=== PATIENT | male | born 1940 | race Caucasian/White ===

== ENCOUNTER 2018-06-12 13:03 | Outpatient (CLI) | payer MEDICARE ==
[2018-06-12 14:51] LABS: Hemoglobin 15.2 g/dL (14.0-18.0); Mean Corpuscular HGB CONC 33.9 g/dL (32.0-36.0); Mean Platelet Volume 7.2 fL (7.4-10.4); Platelet Count 214 thou/uL (130-400); RBC Distribution Width 11.9 % (11.5-14.5); Red Blood Cell (RBC) Count 4.21 mill/uL (4.70-6.10); White Blood Cell (WBC) Count 5.3 thou/uL (4.8-10.8)
[2018-06-12 15:08] LABS: Anion Gap 9 mmol/L (10-20); BUN (Urea Nitrogen) 21 mg/dL (8.4-25.7); Calc. Creatinine Clearance 0 mL/min (70-130); Calcium 8.7 mg/dL (7.8-10.44); Carbon Dioxide 32 mmol/L (23-31); Chloride 102 mmol/L (98-107); Estimated GFR-MDRD 84; Glucose 94 mg/dL (83-110); Sodium 139 mmol/L (136-145)
--- NOTE | 2018-06-12 15:32 | EKG ---
Test Reason : Blood Pressure : / mmHG Vent. Rate : 064 BPM Atrial Rate : 064 BPM P-R Int : 170 ms QRS Dur : 076 ms QT Int : 424 ms P-R-T Axes : 066 026 029 degrees QTc Int : 437 ms Normal sinus rhythm Normal ECG No previous ECGs available Confirmed by MARITO CHEN, DR. Rodríguez ([id number]) on 06/12/2018 3:32:29 PM Referred By: ROCIO Confirmed By:DR. Anne DEVI MD
== END 2018-06-12 13:04 | disposition home or self-care (01) ==
LOC: LABBT 13:03
PROVIDERS: ATTEND Thoracic Surgery (Cardiothoracic Vascular Surgery)
DX: Z01.818 Encounter for other preprocedural examination (principal); I65.23 Occlusion and stenosis of bilateral carotid arteries
CPT/HCPCS: 80048; 85027; 93005; 93010

== ENCOUNTER 2018-06-13 09:08 | Inpatient (IN) | payer MEDICARE ==
[2018-06-13] MEDS ORDERED: Heparin 5,000 UNITS/ML VIAL ONE (10:09)
[2018-06-13] MEDS ORDERED: Protamine Sulfate 50 MG/5 ML VIAL ONE (10:09)
[2018-06-13] MEDS ORDERED: Bupivacaine HCl 0.5%/Epinephrine 1:200,000/PF 30 ml Vial ONE (10:09)
[2018-06-13] MEDS ORDERED: CEFAZOLIN/Water 2 GM/20 ML SYRINGE ONE (10:17)
[2018-06-13] MEDS ORDERED: Remifentanil HCl 2 MG in Sodium Chloride 0.9% 100 ML IV SCH (10:45)
[2018-06-13] MEDS ORDERED: Fentanyl 100 MCG/2 ML VIAL ONE ×3 (11:23→14:13)
[2018-06-13] MEDS ORDERED: PROPOFOL 20 ML ONE ×2 (12:37)
--- NOTE | 2018-06-13 13:38 | OP ---
DATE OF PROCEDURE: 06/13/2018 PREOPERATIVE DIAGNOSIS: Asymptomatic right carotid stenosis. POSTOPERATIVE DIAGNOSIS: Asymptomatic right carotid stenosis. PROCEDURE: Right carotid endarterectomy with patch angioplasty. SURGEON: Dr. Chi Chu ANESTHESIA: General endotracheal. ESTIMATED BLOOD LOSS: Less than 100. PROCEDURE IN DETAIL: After consent was obtained, the patient was brought to operating room and place d in the supine position on the operating room table. Appropriate anesthetic monitor was placed and general endotracheal anesthesia induced. Head was rotated to the left and right neck prepped and jennifer ped in usual sterile fashion. Joints were appropriately supported. Skin incision was made along the anterior border of sternocleidomastoid. Sternocleidomastoid was mobilized. Facial vein was divided between clips and ties. ____ was divided between clips. The carotid sheath was entered. Common in ternal and external carotid arteries were carefully exposed. The patient was systemically heparinize d. After 3 minutes, internal common, and external carotid arteries were serially clamped. Incision was made on the common carotid artery extended through the bulb past the plaque and 10-[place] shunt placed. Antegrade flow was reestablished. Endarterectomy was performed. There was good hemos tasis. An eversion endarterectomy of the external carotid artery was performed. Medial fibers were debrided. Artery was flushed with heparinized saline. Bovine pericardial patch was sewn in place wi th running 6-0 Prolene suture. Prior to completion of the patch, the shunt was clamped and removed. Arteries were backbled and flushed with heparinized saline. Patch suture line was completed and tie d. Antegrade flow was reestablished up the external carotid artery for 10 seconds followed by the in ternal carotid artery. The patient was then given protamine. Hemostasis was ensured. Wound was copying machine repairer iously irrigated, closed in layers and Dermabond applied to the skin. The patient was awakened and n eurologically intact at completion. The patient tolerated the procedure well, and was transferred to the recovery room in stable condition.
[2018-06-13] MEDS ORDERED: hydrALAZINE 20 MG/ML VIAL ONE (13:39)
[2018-06-13] MEDS ORDERED: Ondansetron HCl/PF 4 MG/2 ML Vial IVP PRN (15:53)
[2018-06-13] MEDS ORDERED: Fentanyl 100 MCG/2 ML VIAL SLOW IVP PRN (15:53)
[2018-06-13] MEDS ORDERED: hydrALAZINE 20 MG/ML VIAL SLOW IVP PRN (15:53)
[2018-06-13] MEDS ORDERED: HYDROcodone/Acetaminophen 5/325 mg Tablet PO PRN ×2 (15:53)
[2018-06-13] MEDS ORDERED: Promethazine HCl 25 MG/ML VIAL IM PRN (15:53)
[2018-06-13] MEDS ORDERED: Phenylephrine 10 MG/NS 250 ML 250 ML IVPB PRN (15:53)
[2018-06-13] MEDS ORDERED: Acetaminophen 325 MG TAB PO PRN (15:53)
[2018-06-13] MEDS ORDERED: PROPOFOL 200 MG/20 ML VIAL ONE (15:57)
[2018-06-13] MEDS ORDERED: Lidocaine 1% PF 5 ML VIAL ONE (15:57)
[2018-06-13] MEDS ORDERED: Glycopyrrolate 0.2 MG/ML 5 ML SYRINGE ONE (15:57)
[2018-06-13] MEDS ORDERED: Vecuronium 10 MG VIAL ONE (15:57)
[2018-06-13] MEDS ORDERED: Heparin 10,000 UNITS/ 10 ML VIAL ONE (15:57)
[2018-06-13] MEDS ORDERED: PHENYLEPHRINE-NS 100 MCG/ML 10 ML SYRINGE ONE (15:57)
[2018-06-13] MEDS ORDERED: Ondansetron HCl/PF 4 MG/2 ML Vial ONE (17:34)
[2018-06-13] MEDS ORDERED: HYDROcodone/Acetaminophen 5/325 mg Tablet ONE (18:14)
[2018-06-13] MEDS: Sodium Chloride 0.9% 1,000 ML IV SCH (19:50)
[2018-06-13] MEDS ORDERED: Clopidogrel Bisulfate 75 MG TAB PO SCH (21:00)
[2018-06-13] MEDS ORDERED: Simvastatin 20 MG TAB PO SCH (21:00)
[2018-06-13] MEDS: CEFAZOLIN/Water 2 GM/20 ML SYRINGE SLOW IVP SCH (21:20)
[2018-06-13] MEDS: Brimonidine Tartrate 0.2% Ophth Soln 5 ml Bottle EA EYE SCH (21:20)
[2018-06-13] MEDS: Latanoprost 0.005% Ophth Soln 2.5 ml Bottle EA EYE SCH (21:21)
[2018-06-13] MEDS: Timolol 0.5% Ophth Soln 5 ml Bottle EA EYE SCH (21:21)
[2018-06-13 21:53] VITALS: BMI 22.1
--- NOTE | 2018-06-14 01:53 | DIS ---
DATE OF ADMISSION: 06/13/2018 DATE OF DISCHARGE: 06/14/2018 DIAGNOSIS: Asymptomatic right carotid stenosis. PROCEDURE: Right carotid endarterectomy with patch angioplasty. DISCHARGE MEDICATIONS: Unchanged. FOLLOWUP: Followup is with me in two weeks. DESCRIPTION OF HOSPITAL STAY: Mr. Charles was admitted for elective carotid endarterectomy. He has do ne well and is being discharged to home to follow up with me in 2 weeks.
[2018-06-14] MEDS: CEFAZOLIN/Water 2 GM/20 ML SYRINGE SLOW IVP SCH (02:28)
[2018-06-14] MEDS: Sodium Chloride 0.9% 1,000 ML IV SCH (05:32)
[2018-06-14] MEDS: traMADol HCl 50 MG TAB PO PRN ×2 (05:56→11:46)
[2018-06-14] MEDS ORDERED: Clopidogrel Bisulfate 75 MG TAB PO SCH (09:00)
[2018-06-14] MEDS ORDERED: Aspirin 81 mg Enteric Coated Tablet PO SCH (09:00)
[2018-06-14] MEDS ORDERED: TESTOSTERONE TD SCH (09:00)
[2018-06-14] MEDS: Brimonidine Tartrate 0.2% Ophth Soln 5 ml Bottle EA EYE SCH (09:02)
[2018-06-14] MEDS: Latanoprost 0.005% Ophth Soln 2.5 ml Bottle EA EYE SCH (09:02)
[2018-06-14] MEDS: Timolol 0.5% Ophth Soln 5 ml Bottle EA EYE SCH (09:02)
[2018-06-14 12:29] VITALS: TEMP 98.3
--- NOTE | 2018-06-14 13:41 | DIS ---
DATE OF ADMISSION: 06/13/2018 DATE OF DISCHARGE: 06/14/2018 PRINCIPAL DIAGNOSIS: Bilateral carotid stenosis. PROCEDURE PERFORMED: Right carotid endarterectomy. HISTORY OF PRESENT ILLNESS AND HOSPITAL COURSE: The patient is an 78-year-old man with asymptomatic carotid stenoses suggested by ultrasonography and corroborated by angiography. He was brought into [facility] on 06/13/2018 and underwent the first of a planned staged bilateral carotid endarterectom y procedure. He had an uneventful postop recovery in the Intensive Care Unit. Today, on postoperati ve day 1, he is doing well. His blood pressure is under good control. He is breathing and swallowin g without any difficulty. The wound is clean and dry with no significant swelling. His tongue is mi dline. His voice is normal. He is able to move all extremities normally. He is now being discharge d home to resume his home medications, which include aspirin and Plavix.
== END 2018-06-14 14:20 | disposition home or self-care (01) | DRG 39 ==
LOC: SURG A 09:41 → CCU 15:07
PROVIDERS: ADMIT Thoracic Surgery (Cardiothoracic Vascular Surgery); ATTEND Thoracic Surgery (Cardiothoracic Vascular Surgery)
PROC: 03CH0ZZ Extirpation of Matter from Right Common Carotid Artery, Open Approach (ICD-10-PCS; principal; 2018-06-13)
PROC: 03UH0JZ Supplement Right Common Carotid Artery with Synthetic Substitute, Open Approach (ICD-10-PCS; 2018-06-13)
DX: I65.21 Occlusion and stenosis of right carotid artery (principal); I10 Essential (primary) hypertension; E78.5 Hyperlipidemia, unspecified; Z87.891 Personal history of nicotine dependence
CPT/HCPCS: 80048; 85027; 93005; 93010; J0360; J0670; J0690; J1642; J1644; J2001; J2405; J2704; J2720; J3010; J3490; J7050

== ENCOUNTER 2018-07-08 11:09 | Outpatient (CLI) | payer MEDICARE ==
[2018-07-08 12:09] LABS: Hemoglobin 14.5 g/dL (14.0-18.0); Mean Corpuscular HGB CONC 33.6 g/dL (32.0-36.0); Mean Corpuscular Hemoglobin 35.2 pg (27.0-31.0); Mean Platelet Volume 7.3 fL (7.4-10.4); Platelet Count 227 thou/uL (130-400); RBC Distribution Width 12.2 % (11.5-14.5); Red Blood Cell (RBC) Count 4.11 mill/uL (4.70-6.10); White Blood Cell (WBC) Count 4.8 thou/uL (4.8-10.8)
[2018-07-08 12:32] LABS: Anion Gap 8 mmol/L (10-20); BUN (Urea Nitrogen) 18 mg/dL (8.4-25.7); Calc. Creatinine Clearance 0 mL/min (70-130); Calcium 8.3 mg/dL (7.8-10.44); Carbon Dioxide 29 mmol/L (23-31); Chloride 106 mmol/L (98-107); Estimated GFR-MDRD Greater than 90; Glucose 95 mg/dL (83-110); Sodium 139 mmol/L (136-145)
== END 2018-07-08 11:10 | disposition home or self-care (01) ==
LOC: LABBT 11:09
PROVIDERS: ATTEND Thoracic Surgery (Cardiothoracic Vascular Surgery)
DX: Z01.812 Encounter for preprocedural laboratory examination (principal); I65.22 Occlusion and stenosis of left carotid artery
CPT/HCPCS: 80048; 85027

== ENCOUNTER 2018-07-09 08:55 | Inpatient (IN) | payer MEDICARE ==
[2018-07-08 11:32] VITALS: BMI 21.2
[2018-07-09] MEDS ORDERED: Famotidine/PF 20 mg/2ml Vial ONE (10:25)
[2018-07-09] MEDS ORDERED: Labetalol HCl 100 MG/20 ML VIAL ONE (10:28)
[2018-07-09] MEDS ORDERED: Ondansetron PF 4 MG/2 ML Vial ONE ×2 (10:28→15:21)
[2018-07-09] MEDS ORDERED: CEFAZOLIN/Water 2 GM/20 ML SYRINGE ONE (10:37)
[2018-07-09] MEDS ORDERED: Bupivacaine HCl 0.5%/Epinephrine 1:200,000/PF 30 ml Vial ONE (11:14)
[2018-07-09] MEDS ORDERED: Protamine Sulfate 50 MG/5 ML VIAL ONE (11:14)
[2018-07-09] MEDS ORDERED: Remifentanil HCl 2 MG in Sodium Chloride 0.9% 100 ML IV SCH (11:15)
[2018-07-09] MEDS ORDERED: Heparin 5,000 UNITS/ML VIAL ONE (11:31)
[2018-07-09] MEDS ORDERED: Fentanyl 100 MCG/2 ML VIAL ONE ×2 (11:31→13:30)
[2018-07-09] MEDS ORDERED: SUGAMMADEX SODIUM 200 MG/2 ML VIAL ONE (11:32)
[2018-07-09] MEDS ORDERED: Promethazine HCl 25 MG/ML VIAL SLOW IVP PRN (13:15)
[2018-07-09] MEDS ORDERED: Ondansetron HCl/PF 4 MG/2 ML Vial IVP PRN (13:15)
[2018-07-09] MEDS ORDERED: Promethazine HCl 25 MG/ML VIAL IM PRN (13:15)
[2018-07-09] MEDS ORDERED: hydrALAZINE 20 MG/ML VIAL ONE (13:33)
[2018-07-09] MEDS ORDERED: Prevnar 13-Val Conj/PF 0.5 ML SYRINGE IM ONE (14:45)
[2018-07-09] MEDS ORDERED: hydrALAZINE 20 MG/ML VIAL SLOW IVP PRN (15:07)
[2018-07-09] MEDS ORDERED: Acetaminophen 325 MG TAB PO PRN (15:07)
[2018-07-09] MEDS ORDERED: Fentanyl 100 MCG/2 ML VIAL SLOW IVP PRN (15:07)
[2018-07-09] MEDS ORDERED: CEFAZOLIN/Water 2 GM/20 ML SYRINGE SLOW IVP SCH (15:07)
[2018-07-09] MEDS ORDERED: Dexamethasone 20 MG/5 ML VIAL ONE (15:21)
[2018-07-09] MEDS ORDERED: Esmolol 100 MG/10 ML VIAL ONE (15:21)
[2018-07-09] MEDS ORDERED: Heparin 10,000 UNITS/ 10 ML VIAL ONE (15:21)
[2018-07-09] MEDS ORDERED: Lidocaine 1% PF 5 ML VIAL ONE (15:21)
[2018-07-09] MEDS ORDERED: PROPOFOL 200 MG/20 ML VIAL ONE (15:21)
[2018-07-09] MEDS ORDERED: PHENYLEPHRINE-NS 100 MCG/ML 10 ML SYRINGE ONE (15:21)
[2018-07-09] MEDS: Sodium Chloride 0.9% 1,000 ML IV SCH (15:38)
[2018-07-09] MEDS: traMADol HCl 50 MG TAB PO PRN (20:00)
[2018-07-09] MEDS ORDERED: CEFAZOLIN 1 GM VIAL ONE (20:02)
[2018-07-09] MEDS: Ondansetron PF 4 MG/2 ML Vial IVP PRN (20:03)
[2018-07-09] MEDS: CEFAZOLIN 1 GM in Sodium Chloride 0.9% 100 ML IVPB SCH (20:03)
[2018-07-09] MEDS: Timolol 0.5% Ophth Soln 5 ml Bottle L EYE SCH (20:06)
[2018-07-09] MEDS: Brimonidine Tartrate 0.2% Ophth Soln 5 ml Bottle L EYE SCH (20:07)
[2018-07-09] MEDS ORDERED: Atorvastatin Calcium 10 MG TAB PO SCH (21:00)
[2018-07-09] MEDS ORDERED: Latanoprost 0.005% Ophth Soln 2.5 ml Bottle L EYE SCH (21:00)
[2018-07-09] MEDS ORDERED: Clopidogrel Bisulfate 75 MG TAB PO SCH (21:00)
[2018-07-10] MEDS: traMADol HCl 50 MG TAB PO PRN (01:23)
[2018-07-10] MEDS: Sodium Chloride 0.9% 1,000 ML IV SCH ×2 (01:24→11:35)
[2018-07-10] MEDS: Ondansetron PF 4 MG/2 ML Vial IVP PRN ×3 (03:10→15:19)
[2018-07-10] MEDS: CEFAZOLIN 1 GM in Sodium Chloride 0.9% 100 ML IVPB SCH ×2 (03:11→11:05)
--- NOTE | 2018-07-10 06:11 | DIS ---
DATE OF ADMISSION: 07/09/2018 DATE OF DISCHARGE: 07/10/2018 DIAGNOSIS: Asymptomatic left carotid stenosis. PROCEDURE: Left carotid endarterectomy with patch angioplasty. DISCHARGE MEDICATIONS: Unchanged from his admission medication list. DESCRIPTION OF HOSPITAL STAY: Mr. Charles was admitted for an elective left carotid endarterectomy. H e has done well and being discharged to home in good condition, neurologically intact.
[2018-07-10] MEDS: Brimonidine Tartrate 0.2% Ophth Soln 5 ml Bottle L EYE SCH (08:59)
[2018-07-10] MEDS: Timolol 0.5% Ophth Soln 5 ml Bottle L EYE SCH (08:59)
[2018-07-10] MEDS ORDERED: TESTOSTERONE TOP SCH (09:00)
[2018-07-10] MEDS ORDERED: Aspirin 81 mg Enteric Coated Tablet PO SCH (09:00)
[2018-07-10] MEDS ORDERED: Metoclopramide HCl 10 MG/2 ML VIAL IVP SCH (12:30)
[2018-07-10 15:54] VITALS: BP 138/62; TEMP 98.4
--- NOTE | 2018-07-14 09:07 | OP ---
PREOPERATIVE DIAGNOSIS: Asymptomatic left carotid stenosis. POSTOPERATIVE DIAGNOSIS: Asymptomatic left carotid stenosis. PROCEDURE: Left carotid endarterectomy with patch angioplasty. SURGEON: Chi Chu M.D. ANESTHESIA: General endotracheal. ESTIMATED BLOOD LOSS: Less than 100. PROCEDURE IN DETAIL: After consent was obtained, the patient was brought to operating room and place d in supine position on the operating room table. Appropriate anesthetic monitor was placed and gene ral endotracheal anesthesia induced. Head was rotated to the right. Left neck was prepped and drape d in usual sterile fashion. Skin incision was made along the anterior port of sternocleidomastoid. Platysma was incised with electrocautery. Left sternocleidomastoid muscle was mobilized. The caroti d sheath was entered. Facial vein branch was divided between ties and clips. Common internal and ex ternal carotid arteries were carefully exposed. Patient was systemically heparinized. After adequate heparinization, the internal common and external carotid arteries were serially clampe d. Incision was made on the common carotid artery extended through the bulb on the internal carotid artery distal to the plaque. A 10-[place] shunt was placed and antegrade flow reestablished. Endarterectomy was begun on the common carotid artery. This extended through the bulb on the interna l carotid artery where a good tapered distal endpoint was obtained. Eversion endarterectomy was perf ormed of the external carotid artery. Medial fibers were debrided. Artery was flushed with heparini zed saline. Bovine pericardial patch was sewn in place with running 6-0 Prolene suture. Prior to co mpletion of the patch suture line, the shunt was clamped and removed. Arteries were backbled and flu shed with heparin saline. The patch suture line was completed and tied. Antegrade flow was reestabl ished up the external carotid artery for 10 seconds followed by the internal carotid artery. Protami ne was administered. Hemostasis was ensured. Wounds were copiously irrigated, closed in layers and Dermabond applied to the skin. The patient was awakened and neurologically intact at completion.
== END 2018-07-10 15:40 | disposition home or self-care (01) | DRG 38 ==
LOC: SURG A 08:55 → CCU 14:56
PROVIDERS: ADMIT Thoracic Surgery (Cardiothoracic Vascular Surgery); ATTEND Thoracic Surgery (Cardiothoracic Vascular Surgery)
PROC: 03CN0ZZ Extirpation of Matter from Left External Carotid Artery, Open Approach (ICD-10-PCS; principal; 2018-07-09)
PROC: 03UN0KZ Supplement Left External Carotid Artery with Nonautologous Tissue Substitute, Open Approach (ICD-10-PCS; 2018-07-09)
DX: I65.22 Occlusion and stenosis of left carotid artery (principal); K55.1 Chronic vascular disorders of intestine; Z01.812 Encounter for preprocedural laboratory examination; I25.10 Atherosclerotic heart disease of native coronary artery without angina pectoris; I10 Essential (primary) hypertension; I70.1 Atherosclerosis of renal artery; E78.2 Mixed hyperlipidemia
CPT/HCPCS: 80048; 85027; J0131; J0360; J0670; J0690; J1100; J1642; J1644; J2001; J2405; J2704; J2720; J2765; J3010; J7050; S0028

== ENCOUNTER 2019-04-16 08:05 | Outpatient (CLI) | payer MEDICARE ==
--- NOTE | 2019-04-16 09:49 | MRI ---
Exam: MRI cervical spine without contrast HISTORY: Cervical disc displacement at C5-C6. Right shoulder pain.. COMPARISON: None FINDINGS: Appropriate T1 marrow signal intensity of the cervical vertebra. Vertebral body height is maintained . No fracture. No significant STIR hyperintensity to suggest vertebral body edema or ligamentous injury. There is straightening of normal cervical lordosis. Spondylolisthesis: 1.8 mm of retrolisthesis of C3 upon C4, 3 mm of retrolisthesis of C4 upon C5, 3.5 mm of retrolisthesis of C5 upon C6. Visualized brain parenchyma, cervical medullary junction, cervical cord and the upper thoracic cord h ave normal size and signal intensity. C2-C3: Central disc protrusion, without significant central canal stenosis or neural foraminal narrow ing. C3-C4: Central disc protrusion with slight superior disc extrusion. Midline subarachnoid space is eff aced. There is deformity of the midline cervical cord, without cord hyperintensity. Mild central canal stenosis. Bilaterally, neural foramina are patent C4-C5: Severe loss of disc space height. Broad-based disc osteophyte complex. Ventral subarachnoid sp [place] is maintained. Mild flattening of the midline aspect of the cord, without cord hyperintensity. Mild to moderate central canal stenosis. Moderate to severe right and moderate left foraminal narrowi ng due to bilateral uncovertebral hypertrophy as well as a right facet hypertrophy. C5-C6: Severe loss of disc space height. Broad-based discussed by complex with a right paracentral co mponent. Mass effect and deformity the right hemicord, without cord hyperintensity. Mild to moderate central canal stenosis. Moderate bilateral foraminal narrowing due to uncovertebral hypertro phy. C6-C7: Moderate loss of disc space height. Broad-based discussed by complex flattens the thecal sac. Mild central canal stenosis. Mild to moderate right and mild left neural foraminal narrowing. C7-T1: No significant central canal stenosis or neural foraminal narrowing. Incidental left foraminal perineural sleeve cysts. Asymmetric right facet hypertrophy at T1-T2 with small amount of fluid. IMPRESSION: 1. Multilevel degenerative changes of the cervical spine as detailed above. There is [id number] central canal stenosis at C5 4-C5 and C5-C6. 2. Multilevel neural foraminal narrowing as described above. 2. Spondylolisthesis as described above.
== END 2019-04-16 08:06 | disposition home or self-care (01) ==
LOC: TBSIIMAG 08:05
PROVIDERS: ATTEND Psychiatry & Neurology Neurology
DX: M50.222 Other cervical disc displacement at C5-C6 level (principal); M48.02 Spinal stenosis, cervical region; M47.812 Spondylosis without myelopathy or radiculopathy, cervical region; M43.12 Spondylolisthesis, cervical region
CPT/HCPCS: 72141

== ENCOUNTER 2019-06-26 13:41 | Outpatient (CLI) | payer MEDICARE ==
--- NOTE | 2019-06-26 14:52 | MRI ---
MRI LUMBAR SPINE NONCONTRAST: DATE: 06/26/2019 HISTORY: 79-year-old male with acute low back pain COMPARISON: None available FINDINGS: In the right side of the abdominal cavity, anterior to the right kidney and right psoas muscle, and i nferior to the liver, there is an approximately 8 x 8.5 cm structure which is heterogeneously T1 and T2 moderately hypointense seen on the axial images, incompletely imaged. It is uncertain whether this represents a neoplastic tumor mass or a cluster of bowel loops. For the purposes of this report, it will be assumed that there are 5 lumbar-type vertebrae. Vertebral body heights are maintained. No major bone marrow signal abnormality identified. T12-L1:Minimal disc bulge. No high-grade central or high-grade neural foraminal stenosis. Conus medul ankit terminates at mid L1 level. Disc space maintained. L1-2:Severe disc space narrowing. Degenerative retrolisthesis of L1 on L2. Broad-based disc-osteophyt ic bar complex and the retrolisthesis indent the ventral aspect of the thecal sac, causing mild central spinal canal stenosis. Moderate bilateral neural foraminal stenosis. L2-3:Disc space maintained. Mild disc bulge. Mild bilateral neural foraminal stenosis. No central abdirahman nosis. L3-4:Disc space maintained. Mild disc bulge. Mild right neural foraminal stenosis. Broad-based left l ateral and far lateral disc herniation. Moderate left neural foraminal stenosis. Mild ligamentum flavum thickening. Mild central stenosis. Lateral recess stenosis bilaterally. L4-5:Severe bilateral facet DJD. Severe ligamentum flavum thickening. The facet DJD causes grade 1 an terolisthesis of L4 on L5. Mild to moderate disc space narrowing. Prominent diffuse disc bulge. Mild to moderate right neural foraminal stenosis. Moderate left neural foraminal stenosis. Extremely severe central spinal canal stenosis and lateral recess stenosis bilaterally (with obliteration of CSF signal). L5-S1:Generous caliber of spinal canal and thecal sac due to left hemilaminectomy. Severe disc space narrowing. Broad-based disc-osteophytic bar complex indents the ventral aspect of thecal sac and encroaches upon bilateral neural foramina, indenting the undersurface of the exiting right L5 nerve r oot causing moderate to severe right neural foraminal stenosis, and also causing moderate to severe left neural foraminal stenosis. IMPRESSION: 1) large mass in the right abdominal cavity versus normal bowel loops in cluster. Recommend further e valuation with CT of abdomen (preferably with IV contrast. If there are contraindications to IV contrast, then noncontrast CT would probably be acceptable.). 2) extremely severe central spinal canal stenosis at L4-5 due to a combination of grade 1 spondylolis thesis due to severe bilateral facet osteoarthrosis, diffuse disc bulge, and severe ligamentum flavum thickening. 3) bilateral neural foraminal stenosis at L4-5, and especially at L5-S1. 4) status post left hemilaminectomy at L5-S1. 5) lumbar spondylosis with high-grade degenerative disc disease at L1-2, L4-5, and L5-S1.
== END 2019-06-26 13:42 | disposition home or self-care (01) ==
LOC: SCSMRI 13:41
PROVIDERS: ATTEND Specialist
DX: M54.5 Low back pain (principal); M48.061 Spinal stenosis, lumbar region without neurogenic claudication; M43.16 Spondylolisthesis, lumbar region; M47.816 Spondylosis without myelopathy or radiculopathy, lumbar region; M48.07 Spinal stenosis, lumbosacral region; M47.817 Spondylosis without myelopathy or radiculopathy, lumbosacral region; M51.36 Other intervertebral disc degeneration, lumbar region; M51.37 Other intervertebral disc degeneration, lumbosacral region; Z98.890 Other specified postprocedural states
CPT/HCPCS: 72148

== ENCOUNTER 2019-07-16 09:19 | Outpatient (CLI) | payer MEDICARE ==
[~2019-07-16 09:19] MED LIST: Iopamidol 300 61% 100 ML VIAL FS ONE
[2019-07-16 10:20] LABS: Estimated GFR-MDRD - POC Greater than 90
--- NOTE | 2019-07-16 12:42 | CT ---
CT ABDOMEN AND PELVIS WITH AND WITHOUT IV CONTRAST: HISTORY: Abnormal MRI. Abdominal mass. FINDINGS: Pulmonary hyperinflation at the lung bases. Calcification throughout the arterial structures. Solid o rgans of the abdomen and pelvis are within normal limits. There are prominent degenerative changes of the lumbar spine, including severe stenosis of the central canal at the L4-L5 level. Projecting supe riorly from the pubic symphysis is a smoothly marginated, rounded lesion, measuring up to 2.1 cm in d iameter with a peripheral hyperdense rim and a fluid and gas containing sensor. It has the appearance of a synovial cyst projecting from the degenerative changes of the pubic symphysis. A large amount of stool is present throughout the colon and rectum. The right colon and cecum are pos itioned immediately anterior to the right kidney in the region of concern on recent MRI. No solid mas ses are present. IMPRESSION: 1. Constipation. The stool-filled right colon accounts for the area of concern on recent MRI. No abno rmal masses are apparent. 2. Atherosclerosis. POS: TPC
== END 2019-07-16 09:20 | disposition home or self-care (01) ==
LOC: SCSCT 09:19
PROVIDERS: ATTEND Internal Medicine
DX: R19.03 Right lower quadrant abdominal swelling, mass and lump (principal); I70.0 Atherosclerosis of aorta; K59.00 Constipation, unspecified
CPT/HCPCS: 74178; 82565; Q9967

== ENCOUNTER 2024-03-06 08:14 | Outpatient (CLI) | payer MEDICARE | END 2024-03-06 08:15 | disposition home or self-care (01) | LOC: BICMAMMO 08:14 | PROVIDERS: ATTEND Internal Medicine | DX: M81.0 Age-related osteoporosis without current pathological fracture (principal); M85.851 Other specified disorders of bone density and structure, right thigh; M85.852 Other specified disorders of bone density and structure, left thigh | CPT/HCPCS: 77080 ==

== ENCOUNTER 2025-06-21 10:10 | Outpatient (CLI) | payer MEDICARE | END 2025-06-21 10:11 | disposition home or self-care (01) | LOC: SCSMRI 10:10 | PROVIDERS: ATTEND Orthopaedic Surgery | DX: M54.16 Radiculopathy, lumbar region (principal); M48.062 Spinal stenosis, lumbar region with neurogenic claudication; M48.07 Spinal stenosis, lumbosacral region | CPT/HCPCS: 72148 ==